=== PATIENT | male | born 1955 | race Caucasian/White ===

== ENCOUNTER 2016-06-24 21:22 | Emergency (ER) | payer OTHER ==
[~2016-06-24] VITALS: Ht 170.2 cm; Wt 83.9 kg
--- NOTE | ~2016-06-24 | EKG ---
[address] [place] [address] ELECTROCARDIOGRAM REPORT Name: JAVIER BRYANT Room #: DEP [facility]#: [id number] Admission: 06/24/16 Attend Phys: Discharge: 06/25/16 Date of : 53 Report #: [id number] THIS REPORT FOR: //name// [facility] ED Test Date: 2016-06-24 Test Time: 21:29:50 Pat Name: JAVIER BRYANT Department: Room: Gender: M Pediatric Clinical Nurse Specialist: MZOOK : 1955 Requested By: Denise Perez Order Number: [id number] MD: Rashawn Olivo Measurements Intervals [place] Rate: 101 P: -20 NH: 135 QRS: -26 QRSD: 92 T: 20 QT: 352 QTc: 457 Interpretive Statements Sinus tachycardia Atrial premature complexes Minimal ST depression, diffuse leads Compared to ECG 03/06/2016 18:15:39 Atrial premature complex(es) now present Electronically Signed On 06-25-2016 7:44:59 CDT by Rashawn Olivo [email or web address] <ELECTRONICALLY SIGNED> By: Rashawn Olivo MD, [facility] [id number] 28 Rashawn Olivo MD, [facility] /EPI
[~2016-06-24 21:22] MED LIST: ABILIFY 5 MG TAB5 MG PO; ACETAMINOPHEN325 MG PO; ADDERALL 30 MG30 MG PO; ADDERALL XR 3030 MG PO; AMPHETAMINE SAL30 MG PO; ASPIRIN EC325 M1 PO; ATIVAN2 MG PO; AUGMENTIN 875875 MG PO; BACTRIM DS TAB1 EACH PO; COLACE 100 MG100 MG PO; CYCLOBENZAPRINE5 MG PO; FAMOTIDINE20 MG PO; FLOMAX0.4 MG PO; HYDROCODON-ACE1 EAC7 PO; HYDROCODONE-AP1 EAC6 PO; IBUPROFEN 200200 M1 PO; IBUPROFEN 800800 M1 PO; LOXAPINE5 MG PO; NORCO 5-325 TA1 EACH PO; OXYCODONE HCL 55 MG PO; PERCOCET PO; PRISTIQ100 MG PO; REMERON15 MG PO; REMERON30 MG PO; SEROQUEL XR 30300 M1 PO; SERTRALINE HCL100 MG PO; ZOCOR20 MG PO; [UNRECOGNIZED DRUG - OTHER] PO
[2016-06-24 21:40] LABS: ABSOLUTE NEUTROPHILS 8.1 thou/uL (1.4-8.2); BASOPHILS 0.7 % (0.0-2.0); EOSINOPHILS 0.3 % (0.0-3.0); HEMATOCRIT 46.1 % (42.0-52.0); HEMOGLOBIN 15.6 gm/dL (14.0-18.0); LYMPHOCYTES 27.2 % (24.0-44.0); MCHC 33.9 g/dL (28.0-37.0); MCV 85.5 fL (80.0-100.0); MONOCYTES 9.9 % (1.0-8.0); PLATELET COUNT 229 thou/uL (150-400); POLYS 61.9 % (36.0-66.0); RBC 5.39 mil/uL (4.50-6.00); RDW 14.2 % (10.5-14.5)
[2016-06-24 21:42] LABS: MANUAL DIFF NO
[2016-06-24 21:48] LABS: ANION GAP 13 mmol/L (7-16); BUN 22 mg/dL (7-18); CALCIUM 9.1 mg/dL (8.5-10.1); CHLORIDE 100 mmol/L (98-107); CO2 24 mmol/L (21-32); CREATININE 1.2 mg/dL (0.7-1.3); GLUCOSE 94 mg/dL (74-106); POTASSIUM 3.9 mmol/L (3.5-5.1); SODIUM 137 mmol/L (136-145)
[2016-06-24 21:56] LABS: TROPONIN-I < 0.04 ng/mL (<0.04-0.07)
[2016-06-24] MEDS ORDERED: ATIVAN2 MG PO (22:33)
[2016-06-24] MEDS ORDERED: PHENERGAN 25 MG25 M1 PO (23:05)
== END 2016-06-25 02:01 | disposition home or self-care (01) ==
LOC: ER 21:22
PROVIDERS: Emergency Medicine
DX: R20.2 Paresthesia of skin (principal); F41.9 Anxiety disorder, unspecified; R11.0 Nausea; E78.00 Pure hypercholesterolemia, unspecified; F42.9 Obsessive-compulsive disorder, unspecified; F17.210 Nicotine dependence, cigarettes, uncomplicated; Z90.89 Acquired absence of other organs

== ENCOUNTER 2019-01-11 16:13 | Emergency (ER) | payer OTHER ==
[~2019-01-11] VITALS: Ht 170.2 cm; Wt 85.3 kg
[~2019-01-11 16:13] MED LIST changes: +PHENERGAN 25 MG25 M1 PO
[2019-01-11 17:20] VITALS: BP 125/78
[2019-01-18] MEDS ORDERED: ATORVASTATIN CA20 MG PO (08:19)
[2019-01-18] MEDS ORDERED: TAMSULOSIN HCL0.4 MG PO (08:19)
[2019-01-18] MEDS ORDERED: ADDERALL 30 MG30 MG PO (08:20)
[2019-01-18] MEDS ORDERED: LOSARTAN POTAS100 MG PO (08:21)
== END 2019-01-11 17:20 | disposition home or self-care (01) ==
LOC: ER 16:13
DX: R06.02 Shortness of breath (principal); F41.9 Anxiety disorder, unspecified; I10 Essential (primary) hypertension; E78.00 Pure hypercholesterolemia, unspecified; F17.210 Nicotine dependence, cigarettes, uncomplicated; Z90.49 Acquired absence of other specified parts of digestive tract; Z86.73 Personal history of transient ischemic attack (TIA), and cerebral infarction without residual deficits

== ENCOUNTER → 2019-01-14 | Outpatient (CLI) | payer OTHER ==
[~2019-01-14] MED LIST changes: +ACETAMINOPHEN325 M1 PO; +ATORVASTATIN CA20 MG PO; +LOSARTAN POTAS100 MG PO; +MIRALAX17 GM PO; +TAMSULOSIN HCL0.4 MG PO
== END ==
LOC: MRI 06:17
DX: K86.89 Other specified diseases of pancreas (principal); K80.20 Calculus of gallbladder without cholecystitis without obstruction; K76.89 Other specified diseases of liver; N28.1 Cyst of kidney, acquired

== ENCOUNTER 2019-01-19 06:45 | Day surgery (SDC) | payer OTHER ==
[~2019-01-19] VITALS: Ht 170.2 cm; Wt 86.6 kg
[~2019-01-19 06:45] MED LIST changes: -ACETAMINOPHEN325 M1 PO; -MIRALAX17 GM PO
[2019-01-19 08:08] VITALS: BP 132/62
[2019-01-19] MEDS ORDERED: IBUPROFEN 200200 M1 PO (09:16)
[2019-01-19] MEDS ORDERED: OXYCODONE HCL 55 MG PO (09:17)
[2019-01-19] MEDS ORDERED: ACETAMINOPHEN325 M1 PO (09:17)
[2019-01-19] MEDS ORDERED: MIRALAX17 GM PO (09:18)
[2019-01-19] MEDS ORDERED: COLACE 100 MG100 MG PO (09:18)
[2019-01-19 11:16] VITALS: BP 132/62
--- NOTE | 2019-01-19 17:04 | EKG ---
[address] [place] [address] ELECTROCARDIOGRAM REPORT Name: BRYANTJAVIER ERNESTO [id number] Admission: 01/19/19 Attend Phys: Yared Coker MD Discharge: 01/19/19 Date of : 53 Report #: [id number] THIS REPORT FOR: //name// [facility] Test Date: 2019-01-19 Test Time: 07:16:17 Pat Name: JAVIER BRYANT Department: Room: 150 3 Gender: M Paraeducator: ANDRA : 1955 Requested By: Yared Coker Order Number: [id number] MD: Rashawn Olivo Measurements Intervals [place] Rate: 79 P: -9 AL: 142 QRS: -18 QRSD: 103 T: 0 QT: 377 QTc: 433 Interpretive Statements Sinus rhythm Nonspecific ST segment abnormality Compared to ECG 06/24/2016 21:29:50 Sinus tachycardia no longer present Atrial premature complex(es) no longer present Electronically Signed On 01-19-2019 17:04:[address] SWEEPER by Rashawn Olivo [email or web address] <ELECTRONICALLY SIGNED> By: Rashawn Olivo MD, [facility] 01/19/19 1704 0716 5 Rashawn Olivo MD, [facility] /EPI
--- NOTE | 2019-01-20 17:06 | PATH ---
[facility] [address] [place] [address] PATHOLOGY RPT PROCEDURE Name: TRISTON BRYANT Room #: DEP [facility]..#: [id number] Admission: 01/19/19 Date of : 53 Discharge: 01/19/19 Report #: [id number] Path Case #: [id number] [facility] Accession Number: [id number] . 01 Material submitted: . gallbladder - GALLBLADDER . 01 Clinical history: . Acute pancreatitis without necrosis or infection . 02 Diagnosis: Gallbladder, cholecystectomy: - Mild chronic cholecystitis. - Cholesterolosis associated with cholesterol polyp formation. - Negative for dysplasia or malignancy. (IUV:pit; 01/20/2019) QTP 01/20/2019 1459 Local . 02 Electronically signed: . Beba Moyer MD, Pathologist NPI- [id number] . 01 Gross description: . The specimen is received in formalin, labeled "Triston Bryant, janeen". Received is an intact gallbladder measuring 7.8 x 3.8 x 1.6 cm in greatest dimensions displaying a pink-shannon to pink-oneill serosal surface. Opening the specimen reveals a velvety, red-shannon mucosa displaying several bright yellow polypoid excrescences ranging in size from 0.1 to 0.3 cm, and with a gallbladder wall thickness of 0.1 cm. Calculi are not present, and no masses or lesions are noted grossly. Synchronous Motor Assembler sections, to include the proximal margin, are submitted in cassette A1, to include polypoid excrescences. (CAA; 01/19/2019) QAC/QAC 01/19/2019 1400 Local . 02 Pathologist provided ICD-10: K81.1, K82.4 . 02 CPT . 624056 Specimen Comment: A courtesy copy of this report has been sent to [phone] Specimen Comment: [phone] Specimen Comment: Report sent to / DR MANN Performed at: [address], [place] [id number] [place] [address] PATHOLOGY RPT PROCEDURE Name: TRISTON BRYANTHEN Room #: DEP [facility] M.Justine#: [id number] Admission: 01/19/19 Date of : 53 Discharge: 01/19/19 Report #: [id number] Path Case #: [id number] MD Lee Madrid MD Phone: [phone] Performed at: [address] [id number] MD Beba Moyer MD Phone: [phone]
--- NOTE | 2019-01-26 17:26 | O ---
[address] [address] OPERATIVE REPORT Name: JAVIER BRYANT Room #: DEP [facility] Jorge#: [id number] Admission: 01/19/19 Attend Phys: Yared Coker MD Discharge: 01/19/19 Date of : 53 Report #: [id number] THIS REPORT FOR: //name// CC: Yared Flor DATE OF SERVICE: 01/19/2019 PROCEDURE PERFORMED: 1. Laparoscopic adhesiolysis. 2. Laparoscopic cholecystectomy with intraoperative cholangiogram. PREOPERATIVE DIAGNOSES: 1. Biliary pancreatitis. 2. Severe anxiety. 3. Obsessive compulsive disorder. POSTOPERATIVE DIAGNOSES: 1. Biliary pancreatitis. 2. Severe anxiety. 3. Obsessive compulsive disorder. SURGEON: Dr. Yared Coker. PETROLEUM REFINING EQUIPMENT OPERATOR: None. ANESTHESIA: 1. General. 2. Local. ESTIMATED BLOOD LOSS: 25 mL. URINE OUTPUT: Not measured. COMPLICATIONS: None. SPECIMENS: Gallbladder and contents. FINDINGS: 1. The patient had adhesions in his right upper quadrant from the omentum to the anterior abdominal wall. 2. Cholangiogram demonstrated no filling defects within the common bile duct or common hepatic duct, no choledocholithiasis appreciated, no abnormalities of the anatomy appreciated, normal filling of the duodenum, and I did confirm that it was on the cystic duct, was not clamped. [address] [address] OPERATIVE REPORT Name: JAVIER BRYANT Room #: DEP [facility] Jorge#: [id number] Admission: 01/19/19 Attend Phys: Yared Coker MD Discharge: 01/19/19 Date of : 53 Report #: [id number] INDICATIONS FOR PROCEDURE: The patient is a very pleasant 63-year-old gentleman who was recently hospitalized and found to have elevated lipase. Preoperative workup demonstrated gallstones. He was hospitalized at [facility]. He was subsequently discharged and in followup he was referred to General Surgery clinic. I held a discussion with him regarding his imaging findings. He did have a large pancreatic duct on preoperative workup therefore ordered an MRCP and this was negative. I recommended proceeding with laparoscopic cholecystectomy with intraoperative cholangiogram. The risks, benefits and alternatives of the procedure were discussed with the patient. The risks discussed included but were not limited to the risk of bleeding, infection, conversion to open, damage to the common bile duct (necessitating further surgery for the hospitalization could be a life altering event), damage to any intra-abdominal anatomy, (small bowel and large bowel, stomach, colon, liver, kidney, spleen, blood vessels, nerves, etc.), need for further surgeries, need for further hospitalization, anesthesia (cardiopulmonary and neurologic complications). Alternatives discussed included no surgery and continued conservative management. The patient had the opportunity to ask questions. All questions were answered to the best of my ability. The patient did have extreme anxiety and had difficult time dealing with this. However, he did elect to proceed with surgery. DESCRIPTION OF PROCEDURE: After informed consent was obtained, the patient was taken to the operating room and placed in supine position. General anesthesia was induced. Preprocedure antibiotics were administered. His anterior abdomen was prepped and draped in the usual sterile fashion. A timeout was performed. All were in agreement. A 5 mm infraumbilical incision was made. A Veress needle was then inserted. Pneumoperitoneum was created. A 5 mm port was passed via the laparoscope was then inserted. The patient did have adhesions in his right upper quadrant. I was able to get through these with the camera and visualized normal port placement to the gallbladder. Therefore, I proceeded with placement of the following ports under direct visualization after injection of local anesthetic. Colon size 12 mm subxiphoid port and two 5 mm right upper quadrant ports all ports were placed without difficulty. Lysed the adhesions of the right upper quadrant with scissors and no cautery. These were some adhesions taken down to the gallbladder. Next the dome of the gallbladder was grasped and retracted towards the patient's right shoulder. There was filmy adhesions between the omentum and the body of the gallbladder. These were swept away and dissected away with scissors as well. The neck of the gallbladder was grasped and retracted towards the patient's right. The peritoneum overlying the triangle of Calot incised with electrocautery. Using [facility] [address] [place] [address] OPERATIVE REPORT Name: JAVIER BRYANT Room #: DEP [facility] Jorge#: [id number] Admission: 01/19/19 Attend Phys: Yared Coker MD Discharge: 01/19/19 Date of : 53 Report #: [id number] extreme caution, the peritoneum was opened up medially and laterally along the surface of the liver and up towards the dome all the way on both sides. Next, the triangle of Calot was dissected out using electrocautery and extreme caution not to dissect through any critical structures. Two structures came in the field of view and these were carefully dissected out circumferentially. These were indeed where the cystic duct and cystic artery. Next, the cystic plate was cleared off the pathway of the gallbladder. Later critical view was obtained where 2 and only 2 structures coming into and out of the gallbladder, the cystic plate dissected jail up to the gallbladder, and the triangle of Calot was dissected out as well. Next, a clip was placed distally on the cystic duct and a ductotomy was created. A cholangiogram catheter was threaded. A cholangiogram was performed. There were no stones detected on the cholangiogram. There is normal filling of the duodenum, normal filling of the common bile duct, common hepatic duct and the proximal radicles. I did confirm that it was on the cystic duct with my cholangiogram clamp and by ductotomy. There were essentially no abnormalities appreciated on the cholangiogram. The cholangiogram catheter was removed and the duct was then clipped with 3 clips proximally and the cystic artery was clipped with two clips proximally. The cystic duct was transected with scissors. The cystic artery was transected with electrocautery. Gallbladder was then retracted off the patient's cystic plate. It was noted that his tissues were extremely frail and the gallbladder did tear in one spot. There is spillage of bile, but no spillage of any stones. The gallbladder was passed into the laparoscopic retrieval bag. All free fluid was suctioned out of the right upper quadrant. The clips were reinspected and found to be in place. Hemostasis was present. There was no spillage of any stones. The gallbladder was removed out of the 12 mm port site under direct visualization. I re-inspected the right upper quadrant. Hemostasis was still present. A 12 mm port site was closed using 0 Vicryl and a laparoscopic fascial closure device fashion. The pneumoperitoneum was released. The ports were removed under direct visualization. The skin was closed using 4-0 Monocryl in a subcuticular interrupted fashion. The abdomen was cleaned and dried. The appropriate dressings were applied. The patient tolerated the procedure well. There were no adverse events throughout the course of procedure. <ELECTRONICALLY SIGNED> By: Yared Coker MD 01/26/19 172 05 55 Yared Coker MD /nt
== END 2019-01-19 12:15 | disposition home or self-care (01) ==
LOC: OR 06:45 → TBA 06:54 → OR 09:19
DX: K85.10 Biliary acute pancreatitis without necrosis or infection (principal); K81.1 Chronic cholecystitis; I10 Essential (primary) hypertension; E78.5 Hyperlipidemia, unspecified; N40.0 Benign prostatic hyperplasia without lower urinary tract symptoms; F41.9 Anxiety disorder, unspecified; F42.9 Obsessive-compulsive disorder, unspecified; F32.9 Major depressive disorder, single episode, unspecified; Z98.890 Other specified postprocedural states; Z90.49 Acquired absence of other specified parts of digestive tract; Z87.891 Personal history of nicotine dependence; Z79.899 Other long term (current) drug therapy
CPT/HCPCS: 50010; 50101; 50249; 50411; 50555; 50558; 51489; 52265; 52266; 53307; 53310; 53312; 54022; 54118; 55245; 56462; 56525; 56526; 56674; 62110; 62900; 70005

== ENCOUNTER 2019-01-19 15:05 | Emergency (ER) | payer OTHER ==
[~2019-01-19] VITALS: Ht 170.2 cm; Wt 83.9 kg
[~2019-01-19 15:05] MED LIST changes: +ACETAMINOPHEN325 M1 PO; +MIRALAX17 GM PO
[2019-01-19 17:23] LABS: URINE BILIRUBIN NEGATIVE (Negative); URINE BLOOD 1+ (Negative); URINE CLARITY CLEAR; URINE COLOR YELLOW; URINE GLUCOSE-RANDOM* NEGATIVE (Negative); URINE KETONES NEGATIVE (Negative); URINE LEUKOCYTES-REFLEX NEGATIVE (Negative); URINE NITRITE-REFLEX NEGATIVE (Negative); URINE PROTEIN (DIPSTICK) NEGATIVE (Negative); URINE UROBILINOGEN 0.2 E.U./dl (0.2-1.0)
[2019-01-19 17:29] VITALS: BP 118/76
[2019-01-19 17:34] LABS: BACTERIA-REFLEX 1-9 Few /HPF (None Seen); CASTS None Seen /LPF (None Seen); CRYSTALS None Seen /LPF (None Seen); SQUAMOUS None Seen /LPF (0-3); URINE RBC 3-10 Few /HPF (0-2); URINE WBC-REFLEX None Seen /HPF (0-5)
== END 2019-01-19 17:28 | disposition home or self-care (01) ==
LOC: ER 15:05
PROVIDERS: Emergency Medicine
DX: N99.89 Other postprocedural complications and disorders of genitourinary system (principal); I10 Essential (primary) hypertension; E78.5 Hyperlipidemia, unspecified; F90.9 Attention-deficit hyperactivity disorder, unspecified type; F41.9 Anxiety disorder, unspecified; F32.9 Major depressive disorder, single episode, unspecified; F17.210 Nicotine dependence, cigarettes, uncomplicated; Z90.49 Acquired absence of other specified parts of digestive tract

== ENCOUNTER → 2019-01-25 | Outpatient (CLI) | payer OTHER ==
[~2019-01-25] VITALS: Ht 170.2 cm; Wt 83.9 kg
--- NOTE | 2019-01-25 14:57 | P ---
[facility] [place] [address] PROCEDURE REPORT Name: JAVIER BRYANT [id number] Admission: 01/25/19 Attend Phys: Sal Parker Discharge: Date of : 53 Report #: [id number] THIS REPORT FOR: //name// CC: Sal Flor MD DATE OF SERVICE: 01/25/2019 PROCEDURE PERFORMED: Upper endoscopy with biopsies. HISTORY OF PRESENT ILLNESS: The patient is a 63-year-old male with a recent history of likely gallstone pancreatitis. He underwent a laparoscopic cholecystectomy by Dr. Coker last week. Intraoperative cholangiogram was negative. The patient does have intermittent heartburn symptoms. Denies any dysphagia. No previous history of upper endoscopy. DESCRIPTION OF PROCEDURE: The risks and benefits of the procedure were explained to the patient. Those risks including but not limited to bleeding, perforation and the risk of sedation. He understood these risks and gave informed consent. Sedation was given using propofol per Anesthesia. Next, using a standard Olympus upper endoscope, the scope was placed in the patient's mouth and advanced under direct vision through the esophagus, stomach and into the second portion of the duodenum. The upper esophagus was normal and mid esophagus. In the distal esophagus, grade B erosive esophagitis and a likely segment of approximately 4 cm of possible Cho's was noted. Biopsies were obtained. Upon entering the stomach, a medium-sized hiatal hernia was noted. Overall, the gastric mucosa was normal. The pylorus was normal and patent. In the duodenal bulb, mild duodenitis was noted. No evidence of ulcerations or erosions. The first and second portions of the duodenum were normal. The scope was then withdrawn and the procedure terminated. The patient tolerated the procedure well. IMPRESSION: 1. Grade B erosive esophagitis. 2. 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 3. Hiatal hernia. 4. Mild duodenitis. RECOMMENDATIONS: 1. Await biopsy results. 2. Recommend daily PPI therapy. [address] [address] PROCEDURE REPORT Name: JAVIER BRYANT Room #: REG [facility] Patel#: [id number] Admission: 01/25/19 Attend Phys: Sal Parker Discharge: Date of : 53 Report #: [id number] Thank you for allowing me to participate in his care. <ELECTRONICALLY SIGNED> By: Sal Ricks MD 01/25/19 1457 0851 1014 Sal Ricks MD /nt
--- NOTE | 2019-01-27 13:07 | PATH ---
[facility] [address] [place] [address] PATHOLOGY RPT PROCEDURE Name: TRISTON BRYANT Room #: REG [facility] [place].#: [id number] Admission: 01/25/19 Date of : 53 Discharge: Report #: [id number] Path Case #: [id number] L[facility] Accession Number: [id number] . 01 Material submitted: . esophagus - BX DISTAL ESOPHAGUS. Modifiers: distal . 01 Clinical history: . Pre-OP DX: Pancreatitis, heartburn Post-OP DX: Duodenitis, possible Cho's esophagus, erosive esophagitis, hiatal hernia . 02 Diagnosis: Gastric-type mucosa, distal esophagus, rule out Cho's, endoscopic biopsy: - Specialized columnar epithelium with intestinal metaplasia, compatible with Cho's metaplasia. - Indefinite or indeterminate for dysplasia; favor reactive atypia and negative for dysplasia. (IUV:pit; 01/26/2019) QTP 01/27/2019 1246 Local . 02 Comment: The interpretation for dysplasia is limited due to the amount of inflammation and therefore the reactive atypical changes identified within the sample. Although interpreted as indefinite, reactive atypia is favored. Dr. Jerod Cook has seen a medical customer service representative slide of this case and concurs with my interpretation. . The above diagnosis of Cho's esophagus is made due to presence of intestinal metaplasia and with the assumption that the biopsies were obtained from the columnar mucosa in the distal esophagus located at least 1 cm proximal to the top of the gastric folds as per the 2016 ACG guidelines. (IUV:pit; 01/26/2019) . 02 Electronically signed: . Beba Moyer MD, Pathologist NPI- [id number] . 01 Gross description: . Received in formalin labeled "Triston Bryant, BX distal esophagus," are multiple segments of shannon soft tissue measuring 1.0 x 0.5 x 0.1 cm in aggregate dimensions. The specimen is filtered and entirely submitted in cassette A1. (TSD; 01/25/2019) [address] [address] PATHOLOGY RPT PROCEDURE Name: TRISTON BRYANT [facility] Room #: REG [facility] Jorge#: [id number] Admission: 01/25/19 Date of : 53 Discharge: Report #: [id number] Path Case #: [id number] TOB/TOB 01/25/2019 2209 Local . 02 Pathologist provided ICD-10: K22.70 . 02 CPT . 203775 Specimen Comment: A courtesy copy of this report has been sent to [phone] Specimen Comment: [phone] Specimen Comment: Report sent to / DR MANN Performed at: [address], [place] [id number] MD Lee Madrid MD Phone: [phone] Performed at: [address] [id number] MD Beba Moyer MD Phone: [phone]
== END | disposition home or self-care (01) ==
LOC: GI 07:03
DX: R12 Heartburn (principal); K22.70 Barrett's esophagus without dysplasia; K44.9 Diaphragmatic hernia without obstruction or gangrene; K29.80 Duodenitis without bleeding; I10 Essential (primary) hypertension; E78.5 Hyperlipidemia, unspecified; N40.0 Benign prostatic hyperplasia without lower urinary tract symptoms; F32.9 Major depressive disorder, single episode, unspecified; F41.9 Anxiety disorder, unspecified; Z98.890 Other specified postprocedural states; Z87.891 Personal history of nicotine dependence; Z90.49 Acquired absence of other specified parts of digestive tract; Z79.899 Other long term (current) drug therapy; Z87.442 Personal history of urinary calculi
CPT/HCPCS: 62110; 62900

== ENCOUNTER → 2020-02-24 | Outpatient (CLI) | payer OTHER | LOC: SJCVC 11:49 | PROVIDERS: ATTEND Internal Medicine Cardiovascular Disease | DX: R93.1 Abnormal findings on diagnostic imaging of heart and coronary circulation (principal); E78.00 Pure hypercholesterolemia, unspecified; I10 Essential (primary) hypertension; Z82.49 Family history of ischemic heart disease and other diseases of the circulatory system ==

== ENCOUNTER → 2020-11-15 | Outpatient (CLI) | payer OTHER | LOC: SJCVC 13:05 | PROVIDERS: ATTEND Internal Medicine Cardiovascular Disease | DX: I49.1 Atrial premature depolarization (principal); E78.00 Pure hypercholesterolemia, unspecified; I25.10 Atherosclerotic heart disease of native coronary artery without angina pectoris; I10 Essential (primary) hypertension; R06.02 Shortness of breath; F41.9 Anxiety disorder, unspecified; F32.9 Major depressive disorder, single episode, unspecified; E78.5 Hyperlipidemia, unspecified; F42.9 Obsessive-compulsive disorder, unspecified; F98.8 Other specified behavioral and emotional disorders with onset usually occurring in childhood and adolescence; Z82.49 Family history of ischemic heart disease and other diseases of the circulatory system; Z79.899 Other long term (current) drug therapy; Z87.891 Personal history of nicotine dependence ==

== ENCOUNTER → 2021-01-03 | Outpatient (CLI) | payer OTHER | LOC: SJCVCIMAG 08:14 | PROVIDERS: ATTEND Internal Medicine Cardiovascular Disease | DX: I08.0 Rheumatic disorders of both mitral and aortic valves (principal); I10 Essential (primary) hypertension; E78.00 Pure hypercholesterolemia, unspecified; I25.10 Atherosclerotic heart disease of native coronary artery without angina pectoris; R06.00 Dyspnea, unspecified; E78.5 Hyperlipidemia, unspecified; F41.8 Other specified anxiety disorders; F42.9 Obsessive-compulsive disorder, unspecified; R06.02 Shortness of breath; Z79.899 Other long term (current) drug therapy; Z72.89 Other problems related to lifestyle; Z87.891 Personal history of nicotine dependence ==